=== PATIENT | male | born 1960 | race Two or more races ===

== ENCOUNTER 2024-06-28 06:16 | Day surgery (SDC) | payer OTHER, SELFPAY ==
[2024-06-28] VITALS (9 sets, daily range): BP systolic 110–127; BP diastolic 48–65; BMI 26.3
[2024-06-28] MEDS: NORMOSOL-R/PLASMALYTE-A 1000 IV (09:33)
[2024-06-28] MEDS: TRANSDERM-SCOP 1 PATCH TRANSDERM (10:12)
[2024-06-28] MEDS: EMEND 40 MG PO (10:12)
[2024-06-28] MEDS: TYLENOL 650 MG PO (12:54)
== END 2024-06-28 13:30 | disposition home or self-care (01) ==
LOC: SDS 06:16
PROVIDERS: ATTENDING PHYSICIAN Otolaryngology; FAMILY PHYSICIAN Family Medicine
DX: J32.9 Chronic sinusitis, unspecified (principal)
CPT/HCPCS: 31267; 31254; 88304; 88311; 87070; 87075; 87147; 87186; 87205